=== PATIENT | female | born 1980 | race Caucasian/White ===

== ENCOUNTER 2016-12-12 13:15 | Emergency (ER) | payer OTHER | END 2016-12-12 15:32 | disposition left against medical advice (07) | LOC: UCCORT 13:15 | DX: Z53.21 Procedure and treatment not carried out due to patient leaving prior to being seen by health care provider (principal) ==

== ENCOUNTER 2017-11-30 16:18 | Emergency (ER) | payer OTHER ==
[2017-11-30 17:35] VITALS: BP 134/81
--- NOTE | 2017-11-30 18:43 | UC ---
Skin Complaint HPI - HPI Summary HPI Summary: 37 yo female squeezed a red area on her left breast 2 days ago pain worsened redness worsened and increased in size today had felt feverish and fatigued - History of Current Complaint Chief Complaint: UCSkin Time Seen by Provider: 11/30/17 18:42 Stated Complaint: SKIN COMP LT BREAST Hx Obtained From: Patient Hx Last Menstrual Period: 09/05/14 Onset/Duration: Gradual Onset, Lasting Days Timing: Constant Onset Severity: Mild Current Severity: Moderate Pain Intensity: 4 Pain Scale Used: 0-10 Numeric Location: Discrete Character: Pain, Redness, Painful Aggravating Factor(s): Touch Associated Signs & Symptoms: Positive: Fever - adriana, Tenderness - Allergy/Home Medications Allergies/Adverse Reactions: Allergies Allergy/AdvReac Type Severity Reaction Status Date / Time MS Bee Venom [Bee Venom] Allergy Severe Anaphylatic Verified 11/30/17 17:35 Shock MS Metoclopramide Allergy Anxiety Verified 11/30/17 17:35 [From Reglan] MS Penicillins [Penicillins] Allergy Anaphylatic Verified 11/30/17 17:35 Shock Novacaine Allergy Anaphylatic Uncoded 11/30/17 17:35 Shock Home Medications: Home Medications Escitalopram Oxalate [Lexapro 10 mg] 10 mg PO DAILY 11/30/17 [History Confirmed 11/30/17] Lisinopril TAB* [Prinivil TAB*] 5 mg PO DAILY 11/30/17 [History Confirmed ] Review of Systems Constitutional: Fever - adriana, Fatigue Skin: Negative Eyes: Negative ENT: Negative Respiratory: Negative Cardiovascular: Negative Gastrointestinal: Negative Genitourinary: Negative Motor: Negative Neurovascular: Negative Musculoskeletal: Negative Neurological: Negative Psychological: Negative Is Patient Immunocompromised?: No All Other Systems Reviewed And Are Negative: Yes PMH/Surg Hx/FS Hx/Imm Hx Previously Healthy: Yes Cardiovascular History: Hypertension - Surgical History Surgical History: Yes Surgery Procedure, Year, and Place: PE Tubes as a child. Appendectomy, 1994. Right Wrist Cystectomy, 2000. Cholecystectomy, 2007. Essure, 2012 - Family History Known Family History: Positive: Hypertension - Social History Alcohol Use: None Substance Use Type: None Smoking Status (MU): Light Every Day Tobacco Smoker Type: Cigarettes Amount Used/How Often: 1/2 PPD Length of Time of Smoking/Using Tobacco: 21 Years Have You Smoked in the Last Year: Yes Physical Exam Triage Information Reviewed: Yes Appearance: Well-Appearing, No Pain Distress, Well-Nourished Vital Signs: Initial Vital Signs Temp 97.3 F 11/30/17 17:29 Pulse 82 11/30/17 17:29 Resp 16 11/30/17 17:29 BP 134/81 11/30/17 17:29 Pulse Ox 100 11/30/17 17:29 Eyes: Positive: Conjunctiva Clear ENT: Positive: Hearing grossly normal. Negative: Nasal congestion, Nasal drainage, Trismus, Muffled voice, Hoarse voice Neck: Positive: Supple, Nontender Respiratory: Positive: Lungs clear, Normal breath sounds, No respiratory distress, No accessory muscle use Cardiovascular: Positive: RRR, No Murmur Neurological: Positive: Alert Psychological Exam: Normal Skin Exam: Other - see image Course/Dx - Diagnoses Provider Diagnoses: left breast cellulitis Discharge - Discharge Plan Condition: Stable Disposition: HOME Prescriptions: Cephalexin CAP* [Keflex CAP*] 500 mg PO QID #28 cap Sulfamethox/Trimethoprim DS* [Bactrim DS 800/160 TAB*] 1 tab PO BID #14 tab Patient Education Materials: Cellulitis (ED) Forms: *Work Release Referrals: Cesia Topete MD [Primary Care Provider] - 2 Days Additional Instructions: warm compresses TO ER FOR NEW OR WORSENING SYMPTOMS if not dramatically improved in 48 hours get rechecked Images Front/Back of Body, Lg ([place]): 1 - red left breast medially. central 1 cm eschar. no axillary adenopathy. no abscess/flutuance
== END 2017-11-30 18:57 | disposition home or self-care (01) ==
LOC: UCCORT 16:18
DX: N61.0 Mastitis without abscess (principal); R50.9 Fever, unspecified; R53.83 Other fatigue; I10 Essential (primary) hypertension; Z90.49 Acquired absence of other specified parts of digestive tract; Z88.0 Allergy status to penicillin; Z88.8 Allergy status to other drugs, medicaments and biological substances; Z88.4 Allergy status to anesthetic agent; Z91.030 Bee allergy status; F17.210 Nicotine dependence, cigarettes, uncomplicated
CPT/HCPCS: 99212; G0463

== ENCOUNTER 2019-02-28 09:43 | Emergency (ER) | payer OTHER ==
[2019-02-28 10:48] VITALS: BP 142/89
--- NOTE | 2019-02-28 10:57 | UC ---
UC General HPI - HPI Summary HPI Summary: SORE THROAT, COUGH, BODYACHES, N/V/D(FEW TIMES) X 2 DAYS. HOARSE VOICE. NO TRAVEL, IBD OR RECENT ANTIBIOTIC USE. NO FEVER OR ABDOMINAL PAIN. - History of Current Complaint Stated Complaint: ST,COUGH,ACHES,NAUSEA Time Seen by Provider: 02/28/19 10:48 Hx Obtained From: Patient Hx Last Menstrual Period: ablation/tubal Pain Intensity: 0 - Allergy/Home Medications Allergies/Adverse Reactions: Allergies Allergy/AdvReac Type Severity Reaction Status Date / Time bee venom protein (honey bee) Allergy Anaphylatic Verified 02/28/19 10:54 Shock metoclopramide [From Reglan] Allergy Anxiety Verified 02/28/19 10:54 Penicillins Allergy Anaphylatic Verified 02/28/19 10:54 Shock procaine [From Novocain] Allergy Anaphylatic Verified 02/28/19 10:54 Shock PMH/Surg Hx/FS Hx/Imm Hx Endocrine History: Diabetes - TYPE II-DIET CONTROL Cardiovascular History: Hypertension, Myocardial Infarction Neurological History: CVA - Surgical History Surgical History: Yes Surgery Procedure, Year, and Place: PE Tubes as a child. Appendectomy, 1994. Right Wrist Cystectomy, 2000. Cholecystectomy, 2007. Essure, 2012, tubal removal - Family History Known Family History: Positive: Cardiac Disease, Hypertension - Social History Occupation: Employed Full-time Alcohol Use: Rare Substance Use Type: Marijuana Smoking Status (MU): Light Every Day Tobacco Smoker Type: Cigarettes Amount Used/How Often: 1/2 PPD Length of Time of Smoking/Using Tobacco: 21 Years Have You Smoked in the Last Year: Yes Review of Systems All Other Systems Reviewed And Are Negative: Yes Constitutional: Negative: Fever ENT: Positive: Sore Throat Respiratory: Positive: Cough. Negative: Shortness Of Breath Cardiovascular: Negative: Palpitations, Chest Pain Gastrointestinal: Positive: Vomiting, Diarrhea, Nausea. Negative: Abdominal Pain Musculoskeletal: Positive: Myalgia Physical Exam Triage Information Reviewed: Yes Appearance: Well-Appearing Vital Signs: Initial Vital Signs Temp 97.9 F 02/28/19 10:43 Pulse 94 02/28/19 10:43 Resp 16 02/28/19 10:43 BP 142/89 02/28/19 10:43 Pulse Ox 97 02/28/19 10:43 Vital Signs Reviewed: Yes Eyes: Positive: Conjunctiva Clear ENT: Positive: Pharyngeal erythema - SLIGHT, TMs normal, Uvula midline. Negative: Nasal congestion, Nasal drainage, Trismus, Muffled voice, Hoarse voice Neck: Positive: Supple, Nontender, Enlarged Nodes @ - PERITONSILAR Respiratory: Positive: Lungs clear, Normal breath sounds, No respiratory distress Cardiovascular: Positive: RRR, No Murmur Abdomen Description: Positive: Nontender, No Organomegaly, Soft Bowel Sounds: Positive: Present Musculoskeletal: Positive: ROM Intact Neurological: Positive: Alert Psychological: Positive: Age Appropriate Behavior Skin Exam: Normal Course/Dx - Course Course Of Treatment: DIAGNOSTIC=RAPID STREP IS NEGATIVE. RAPID FLU IS NEGATIVE - Differential Dx - Multi-Symptom Differential Diagnoses: Other - NON TOXIC. RAPID STREP/FLU ARE NEGATIVE. NO CONCERN FOR PNEUMONIA. NO INDICATIOON FOR ANTIBIOTICS. - Diagnoses Provider Diagnosis: Viral syndrome Discharge - Sign-Out/Discharge Documenting (check all that apply): Patient Departure All imaging exams completed and their final reports reviewed: No Studies - Discharge Plan Condition: Stable Disposition: HOME Patient Education Materials: Viral Syndrome (ED) Forms: *Work Release Referrals: Kenya Lopez MD [Primary Care Provider] - 5 Days Additional Instructions: FOLLOW UP WITH PRIMARY CARE IF NOT BETTER IN 5 DAYS OR SOONER IF WORSE. - Billing Disposition and Condition Condition: STABLE Disposition: Home
[2019-02-28 11:20] LABS: Influenza A Molecular NEGATIVE (Negative); Influenza B Molecular NEGATIVE (Negative)
== END 2019-02-28 11:30 | disposition home or self-care (01) ==
LOC: UCCORT 09:43
DX: B34.9 Viral infection, unspecified (principal); E11.9 Type 2 diabetes mellitus without complications; I25.2 Old myocardial infarction; I10 Essential (primary) hypertension; Z86.73 Personal history of transient ischemic attack (TIA), and cerebral infarction without residual deficits; Z88.0 Allergy status to penicillin; Z88.8 Allergy status to other drugs, medicaments and biological substances; Z88.4 Allergy status to anesthetic agent; Z91.030 Bee allergy status; F17.210 Nicotine dependence, cigarettes, uncomplicated
CPT/HCPCS: 87651; 99211; G0463